=== PATIENT | male | born 1990 | race Caucasian/White ===

== ENCOUNTER 2018-08-26 10:52 | Outpatient (CLI) | payer OTHER | END 2018-08-26 10:53 | disposition home or self-care (01) | LOC: SC 10:52 | PROVIDERS: ATTEND Internal Medicine Pulmonary Disease | DX: G47.33 Obstructive sleep apnea (adult) (pediatric) (principal) | CPT/HCPCS: 99203; 99212 ==

== ENCOUNTER 2019-04-20 07:30 | Outpatient (CLI) | payer OTHER ==
--- NOTE | 2019-04-21 10:41 | MRI Report ---
Reason: LOW BACK PAIN Procedure Date: 04/20/2019 Accession Number: [id number] / [id number] Procedure: MRI - Lumbar Spine W/O CPT Code: FULL RESULT: EXAM: MRI LUMBAR SPINE WITHOUT CONTRAST EXAM DATE: 04/20/2019 08:54 AM. CLINICAL HISTORY: Low back pain. COMPARISON: None. TECHNIQUE: Multiplanar, multisequence T1-weighted and fluid-sensitive sequences of the lumbar spine from T10 to S1 without contrast. Other: None. FINDINGS: Evaluation of the lower thoracic spine limited due to edge of field of view artifact. Spinal Canal: The conus terminates at T12-L1. The conus medullaris and cauda equina are unremarkable. Congenital central canal stenosis with osseous diameter at L3 measuring 12 mm. Alignment: No scoliosis or spondylolisthesis. 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 No gross fractures or bone lesions. No bone marrow replacement. Disk Levels/Facets: Disk desiccation and minimal disk height loss at L4-L5. T10-T11: Sagittal images only with artifact. Suggestion of minimal disk bulge and minimal central canal stenosis. T11-T12: Sagittal images only with artifact. Suggestion of minimal disk bulge and minimal central canal stenosis. T12-L1: Unremarkable. L1-L2: Unremarkable. L2-L3: Minimal facet hypertrophy with effusions. Prominent epidural fat contributes to minimal central canal stenosis. Minimal bilateral neural foramen stenosis. L3-L4: Minimal disk bulge. Minimal facet hypertrophy with stenosis. Prominent epidural fat contributes to minimal central canal stenosis. Mild bilateral neural foramen stenosis. L4-L5: Minimal disk bulge with small left paracentral disk extrusion extending caudally 3 mm. Minimal facet hypertrophy. Minimal central canal stenosis. Disk protrusion may contact the traversing left L5 nerve root. Mild bilateral neural foramen stenosis, left greater than right with possible effacement of the exiting left L4 nerve root. L5-S1: Rudimentary disk. No stenosis. Musculature: No edema or fatty atrophy. Other: The partially visualized retroperitoneum is unremarkable. IMPRESSION: 1. 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 Recommend correlate with radiographs. 2. Underlying congenital central canal stenosis. 3. Minimal degenerative disk and facet changes. 4. Small left paracentral disk extrusion at L4-L5 contributes to minimal central canal stenosis and may contact the traversing left L5 nerve root. 5. Minimal central canal stenosis at L2-L3 and L3-L4 and in the partially visualized lower thoracic spine. 6. Minimal to mild neural foramen stenosis at multiple levels, most prominent at L4-L5 on the left where there is possible effacement of the exiting L4 nerve root. Comment: The following findings are so common in adults without low back pain that while we report their presence, they must be interpreted with caution and in the context of the clinical situation. (Reference Wendyk et al, Spine 2001) Prevalence of findings in patients without low back pain: Disk degeneration (any evidence): 92% Disk desiccation/T2 signal loss: 83% Disk height loss: 56% Disk bulge: 64% Disk protrusion: 32% Annular tear/high intensity zone: 38% RADIA
== END 2019-04-20 07:31 | disposition home or self-care (01) ==
LOC: DI 07:30
DX: M51.36 Other intervertebral disc degeneration, lumbar region (principal); M48.061 Spinal stenosis, lumbar region without neurogenic claudication; M47.816 Spondylosis without myelopathy or radiculopathy, lumbar region; M51.26 Other intervertebral disc displacement, lumbar region
CPT/HCPCS: 72148